=== PATIENT | female | born 1955 | race Caucasian/White ===

== ENCOUNTER → 2023-06-14 12:35 | Outpatient (REF) | payer MEDICARE, SELFPAY | LOC: RAD 12:35 | PROVIDERS: ATTENDING PHYSICIAN Specialist; FAMILY PHYSICIAN Family Medicine; REFERRING PHYSICIAN Student in an Organized Health Care Education/Training Program | DX: N18.31 Chronic kidney disease, stage 3a (principal) | CPT/HCPCS: 76775 ==